=== PATIENT | female | born 1950 | race Caucasian/White ===

== ENCOUNTER 2021-11-20 05:12 | Inpatient (IN) ==
[2021-11-20] MEDS ORDERED: MIDAZOLAM 2 MG/2 ML VIAL ONE (05:58)
[2021-11-20] MEDS ORDERED: ROPIVACAINE 0.5% 30 ML VIAL ONE (05:59)
[2021-11-20] MEDS ORDERED: DEXAMETHASONE 4 MG/1 ML VIAL ONE (05:59)
[2021-11-20] MEDS ORDERED: LIDOCAINE 1% 5 ML VIAL ONE (05:59)
[2021-11-20] MEDS ORDERED: DEXMEDETOMIDINE 200 MCG/2 ML VIAL ONE (05:59)
[2021-11-20] MEDS ORDERED: buprenorphine HCL 0.3 MG/ML VIAL ONE (06:06)
[2021-11-20] MEDS ORDERED: FAMOTIDINE 20 MG TABLET ONE (06:16)
[2021-11-20] MEDS ORDERED: VANCOMYCIN 1,000 MG VIAL ONE (06:16)
[2021-11-20] MEDS ORDERED: ceFAZolin 1,000 MG VIAL ONE (06:17)
[2021-11-20] MEDS ORDERED: ACETAMINOPHEN 500 MG TABLET ONE (06:17)
[2021-11-20] MEDS ORDERED: ACETAMINOPHEN 500 MG TABLET PO ONE (06:17)
[2021-11-20] MEDS ORDERED: FAMOTIDINE 20 MG TABLET PO ONE (06:17)
[2021-11-20] MEDS ORDERED: LACTATED RINGERS 1,000 ML IV SCH (06:30)
[2021-11-20 06:43] LABS: PT Patient Result 10.9 SECS (10.5-12.0); Partial Thromboplastin Time 27.9 SECS (23.8-32.1)
[2021-11-20] MEDS ORDERED: TEMAZEPAM 7.5 MG CAPSULE PO PRN (07:15)
[2021-11-20] MEDS ORDERED: MAGNESIUM HYDROXIDE SUSP 30 ML UDCUP PO PRN (07:15)
[2021-11-20] MEDS ORDERED: LACTULOSE 20 GM/30 ML UDCUP PO PRN (07:15)
[2021-11-20] MEDS ORDERED: PROMETHAZINE 25 MG/1 ML VIAL IM PRN (07:15)
[2021-11-20] MEDS ORDERED: diphenhydrAMINE CAP 25 MG CAPSULE PO PRN (07:15)
[2021-11-20] MEDS ORDERED: ONDANSETRON 4 MG/2 ML VIAL IV PRN (07:15)
[2021-11-20] MEDS ORDERED: BISACODYL 10 MG SUPP RECTAL PRN (07:15)
[2021-11-20] MEDS ORDERED: MORPHINE 2 MG/1 ML SYRINGE IV PRN (07:22)
[2021-11-20] MEDS ORDERED: TRANEXAMIC ACID 1,000 MG/10 ML VIAL ONE (08:04)
[2021-11-20] MEDS ORDERED: BUPIVACAINE SPINAL 0.75% 2 ML AMP SPINAL ONE (08:04)
[2021-11-20] MEDS: ASCORBIC ACID 500 MG TABLET PO SCH (09:40)
[2021-11-20] MEDS: MORPHINE 2 MG/1 ML SYRINGE IV PRN ×2 (12:50→18:20)
[2021-11-20] MEDS: ceFAZolin 2,000 MG/50 ML DUPLEX IV SCH ×2 (13:56→21:10)
[2021-11-20] MEDS: FONDAPARINUX 2.5 MG/0.5 ML SYRINGE SUBCUT SCH (21:08)
[2021-11-20] MEDS: DOCUSATE SODIUM 100 MG CAPSULE PO SCH (21:08)
[2021-11-20] MEDS: PANTOPRAZOLE 40 MG TABLET PO SCH (21:08)
[2021-11-21 04:07] LABS: Basophils % 0.2 % (0.0-0.8); Hematocrit 36.5 VOL% (35.7-47.0); Hemoglobin 11.9 GM/DL (12.0-16.0); Immature Granulocytes % 0.4 %; Immature Granulocytes Absolute 0.05 #; Lymphocytes # 1.2 10*3/uL (1.4-4.0); Lymphocytes % 9.8 % (21.3-54.2); Mean Corpuscular HGB Conc 32.6 GM/DL (32-36); Mean Corpuscular Volume 84.3 FL (87-102); Mean Platelet Volume 9.9 FL (9.6-12.0); Monocytes # 1.1 10*3/uL (0.11-0.8); Monocytes % 9.2 % (1.7-12.7); Neutrophils % 80.4 % (38.7-73.9); Platelet Count 343 T/CUMM (130-400); Red Blood Count 4.33 MC/CUMM (3.8-5.5); Red Cell Distribution Width 13.7 % (9.3-17.3); White Blood Count 12.3 T/CUMM (4-12)
[2021-11-21 04:25] LABS: Osmolality,Calculated 278.7 MOS/KG (273-304); Potassium 3.9 MMOL/L (3.5-5.1)
[2021-11-21] MEDS ORDERED: ACETAMINOPHEN 325 MG TABLET PO PRN (07:17)
[2021-11-21] MEDS: OLMESARTAN 20 MG TABLET PO SCH (09:27)
[2021-11-21] MEDS: ASCORBIC ACID 500 MG TABLET PO SCH (09:27)
[2021-11-21] MEDS: DOCUSATE SODIUM 100 MG CAPSULE PO SCH ×2 (09:27→21:26)
[2021-11-21] MEDS: MELOXICAM 7.5 MG TABLET PO SCH (09:27)
[2021-11-21] MEDS: hydroCHLOROthiazide 12.5 MG CAPSULE PO SCH (09:27)
[2021-11-21] MEDS: PANTOPRAZOLE 40 MG TABLET PO SCH ×2 (09:27→21:26)
[2021-11-21] MEDS: CHOLECALCIFEROL 5,000 UNIT TABLET PO SCH (09:27)
[2021-11-21] MEDS: FONDAPARINUX 2.5 MG/0.5 ML SYRINGE SUBCUT SCH (21:27)
[2021-11-21] MEDS ORDERED: cloNIDine 0.1 MG TABLET PO PRN (22:43)
[2021-11-22 07:37] VITALS: BP 162/78
[2021-11-22] MEDS: CHOLECALCIFEROL 5,000 UNIT TABLET PO SCH (08:21)
[2021-11-22] MEDS: MELOXICAM 7.5 MG TABLET PO SCH (08:21)
[2021-11-22] MEDS: ASCORBIC ACID 500 MG TABLET PO SCH (08:21)
[2021-11-22] MEDS: DOCUSATE SODIUM 100 MG CAPSULE PO SCH (08:21)
[2021-11-22] MEDS: OLMESARTAN 20 MG TABLET PO SCH (08:21)
[2021-11-22] MEDS: hydroCHLOROthiazide 12.5 MG CAPSULE PO SCH (08:21)
[2021-11-22] MEDS: PANTOPRAZOLE 40 MG TABLET PO SCH (08:21)
[2021-11-22] MEDS: FONDAPARINUX 2.5 MG/0.5 ML SYRINGE SUBCUT SCH (10:36)
== END 2021-11-22 11:37 | disposition home health service (06) | DRG 470 ==
LOC: N.OR 05:12 → N.SDSINP 05:14 → N.3E 08:16
PROVIDERS: ADMIT Orthopaedic Surgery; ATTEND Orthopaedic Surgery